=== PATIENT | male | born 1985 | race Caucasian/White ===

== ENCOUNTER 2017-03-17 17:51 | Inpatient (IN) | payer MEDICAID ==
[~2017-03-17] VITALS: Ht 182.9 cm; Wt 84.0 kg
[2017-03-17] MEDS ORDERED: SODIUM CHLORIDE FLUSH 10ML SYR IVF ONE ×2 (18:30→20:00)
[2017-03-17] MEDS ORDERED: ONDANSETRON 2MG/ML, 2ML IVPush ONE ×2 (18:30→20:00)
[2017-03-17] MEDS ORDERED: SODIUM CHLORIDE 0.9% 1,000ML IVBOLUS ONE (18:30)
[2017-03-17] MEDS ORDERED: ONDANSETRON 2MG/ML, 2ML ONE ×2 (18:48→20:20)
[2017-03-17 18:51] LABS: BASOPHILS # (AUTO) 0.06 x10^3/uL (0-0.1); BASOPHILS % (AUTO) 0 % (0-1); EOSINOPHILS # (AUTO) 0.14 x10^3/uL (0-0.4); EOSINOPHILS % (AUTO) 1 % (1-7); LYMPHOCYTES # (AUTO) 1.72 x10^3/uL (1-3.4); LYMPHOCYTES % (AUTO) 13 % (22-44); MD NO; MEAN CORPUSCULAR HEMOGLOBIN 31.9 pg (27.5-34.5); MEAN CORPUSCULAR HGB CONC 34.5 g/dL (33.2-36.2); MEAN CORPUSCULAR VOLUME 92.6 fL (81-97); MEAN PLATELET VOLUME 8.6 fL (7.4-10.4); MONOCYTES # (AUTO) 0.46 x10^3/uL (0.2-0.8); MONOCYTES % (AUTO) 3 % (2-9); NEUTROPHILS # (AUTO) 11.44 x10^3/uL (1.8-6.8); NEUTROPHILS % (AUTO) 83 % (42-75); PLATELET COUNT 268 x10^3/uL (130-400); RED BLOOD COUNT 5.47 x10^6/uL (4.38-5.82); RED CELL DISTRIBUTION WIDTH 13.1 % (9.4-14.8)
[2017-03-17 19:04] LABS: ALBUMIN 4.2 g/dL (3.4-5.0); ANION GAP 8 mmol/L (5-15); CALCIUM 8.9 mg/dL (8.5-10.1); CHLORIDE 108 mmol/L (98-107)
[2017-03-17] MEDS ORDERED: FAMOTIDINE 20 MG/2 ML IVP ONE (20:00)
[2017-03-17] MEDS ORDERED: SODIUM CHLORIDE 0.9% 1,000 ML IV ONE (20:00)
[2017-03-17] MEDS ORDERED: HYDROmorphone 2 MG/ML, 1ML ONE ×2 (20:20→22:25)
[2017-03-17] MEDS: HYDROmorphone 1 MG/ML, 1ML IVPush PRN ×2 (20:25→22:26)
[2017-03-17 20:52] LABS: ALBUMIN 3.8 g/dL (3.4-5.0); BILIRUBIN, DIRECT 0.2 mg/dL (0.1-0.2)
[2017-03-17 20:54] LABS: MICROSCOPIC INDICATED
[2017-03-17 20:55] LABS: BILIRUBIN,INDIRECT 0.6 mg/dL (0.0-2.0); BILIRUBIN,TOTAL 0.8 mg/dL (0.2-1.0); TOTAL PROTEIN 7.3 g/dL (6.4-8.2)
[2017-03-17 20:59] LABS: CULTURE INDICATED? YES
[2017-03-17] MEDS ORDERED: OMNIPAQUE 350 MG/ML, 100ML BOTTLE ONE (21:21)
[2017-03-17 21:24] LABS: CLOSTRIDIUM DIFFICILE ANTIGEN NEGATIVE; CLOSTRIDIUM DIFFICILE TOXIN NEGATIVE (Negative)
[2017-03-17] MEDS ORDERED: METRONIDAZOLE PMX 500MG/100ML 100 ML IV ONE (22:00)
[2017-03-17] MEDS ORDERED: CIPROFLOXACIN/PMX 400MG/200ML 200 ML IV ONE (22:00)
[2017-03-17] MEDS ORDERED: CIPROFLOXACIN/PMX 400MG/200ML 200 ML ONE (22:15)
[2017-03-17] MEDS ORDERED: FAMOTIDINE 20 MG/2 ML ONE (22:15)
[2017-03-17] MEDS: SODIUM CHLORIDE 0.9% 1,000 ML IV SCH (22:44)
[2017-03-17 22:54] VITALS: BP 123/73
[2017-03-17] MEDS ORDERED: POTASSIUM CHLORIDE 40 MEQ in SODIUM CHLORIDE 0.9% 500 ML IV ONE (23:00)
[2017-03-17] MEDS: morphine SULFATE 10 MG/ML, 1ML IVPush PRN (23:11)
[2017-03-17 23:29] LABS: HCT (SEDRATE) 50.6 % (39.2-51.8)
[2017-03-18] MEDS: METRONIDAZOLE PMX 500MG/100ML 100 ML IV SCH ×3 (00:06→18:08)
[2017-03-18 01:06] LABS: OCCULT BLOOD POSITIVE (NEGATIVE)
[2017-03-18 02:04] VITALS: BP 123/72
[2017-03-18] MEDS: ONDANSETRON 2MG/ML, 2ML IVPush PRN ×4 (02:13→21:20)
[2017-03-18] MEDS: morphine SULFATE 10 MG/ML, 1ML IVPush PRN ×7 (02:14→21:20)
[2017-03-18 05:26] LABS: BASOPHILS # (AUTO) 0.05 x10^3/uL (0-0.1); BASOPHILS % (AUTO) 0 % (0-1); EOSINOPHILS # (AUTO) 0.08 x10^3/uL (0-0.4); EOSINOPHILS % (AUTO) 1 % (1-7); LYMPHOCYTES # (AUTO) 2.05 x10^3/uL (1-3.4); LYMPHOCYTES % (AUTO) 14 % (22-44); MD NO; MEAN CORPUSCULAR HEMOGLOBIN 31.5 pg (27.5-34.5); MEAN CORPUSCULAR VOLUME 92.7 fL (81-97); MEAN PLATELET VOLUME 8.6 fL (7.4-10.4); MONOCYTES # (AUTO) 0.62 x10^3/uL (0.2-0.8); MONOCYTES % (AUTO) 4 % (2-9); NEUTROPHILS # (AUTO) 11.87 x10^3/uL (1.8-6.8); NEUTROPHILS % (AUTO) 81 % (42-75); PLATELET COUNT 231 x10^3/uL (130-400); RED BLOOD COUNT 5.12 x10^6/uL (4.38-5.82); RED CELL DISTRIBUTION WIDTH 12.9 % (9.4-14.8)
[2017-03-18 05:39] LABS: ALBUMIN 3.2 g/dL (3.4-5.0); ANION GAP 5 mmol/L (5-15); CALCIUM 7.3 mg/dL (8.5-10.1); CHLORIDE 111 mmol/L (98-107)
[2017-03-18 05:49] LABS: ALANINE AMINOTRANSFERASE 23 U/L (12-78); ALKALINE PHOSPHATASE 45 U/L (45-117); BILIRUBIN,TOTAL 0.6 mg/dL (0.2-1.0); CHOL/HDL RATIO 3.2; CHOLESTEROL, TOTAL 125 mg/dL (140-239); CREATININE 0.92 mg/dL (0.7-1.3); HDL CHOL % 31 % (26-37); HDL CHOLESTEROL (DIRECT) 39 mg/dL (40-60); LDL CHOLESTEROL,CALCULATED 77 mg/dL (54-169); TOTAL PROTEIN 6.4 g/dL (6.4-8.2); TRIGLYCERIDES 47 mg/dL (50-200); VLDL CHOLESTEROL 9 mg/dL (0-25)
[2017-03-18 06:26] LABS: HEMOGLOBIN A1C 4.9 % (4.2-6.3)
[2017-03-18] MEDS ORDERED: PANTOPRAZOLE 40 MG IV IVPush SCH (07:30)
[2017-03-18 07:55] VITALS: BP 123/75
[2017-03-18] MEDS ORDERED: LEVOFLOXACIN/PMX 750MG/150ML 150 ML IV SCH (10:00)
[2017-03-18] MEDS: SODIUM CHLORIDE 0.9% 1,000 ML IV SCH (10:08)
[2017-03-18] MEDS ORDERED: SODIUM PHOSPHATE 20 MMOL in SODIUM CHLORIDE 0.9% 500 ML IV ONE (11:00)
[2017-03-18] MEDS ORDERED: MAGNESIUM SULFATE PMX 2GM/50ML 50 ML IV ONE (11:00)
[2017-03-18 13:51] VITALS: BP 129/77
[2017-03-18] MEDS: CIPROFLOXACIN/PMX 400MG/200ML 200 ML IV SCH (14:09)
[2017-03-18 18:24] VITALS: BP 115/67
[2017-03-18] MEDS: D5%-0.9% NACL+KCL 20MEQ 1,000 ML IV SCH (19:48)
[2017-03-19] MEDS: morphine SULFATE 10 MG/ML, 1ML IVPush PRN ×7 (00:33→21:20)
[2017-03-19 00:53] VITALS: BP 111/64
[2017-03-19] MEDS: CIPROFLOXACIN/PMX 400MG/200ML 200 ML IV SCH ×2 (01:49→14:44)
[2017-03-19] MEDS: METRONIDAZOLE PMX 500MG/100ML 100 ML IV SCH ×3 (03:12→18:17)
[2017-03-19] MEDS: D5%-0.9% NACL+KCL 20MEQ 1,000 ML IV SCH ×2 (05:04→14:47)
[2017-03-19] MEDS: ONDANSETRON 2MG/ML, 2ML IVPush PRN ×3 (05:04→18:17)
[2017-03-19 05:35] LABS: BASOPHILS # (AUTO) 0.05 x10^3/uL (0-0.1); BASOPHILS % (AUTO) 0 % (0-1); EOSINOPHILS # (AUTO) 0.13 x10^3/uL (0-0.4); EOSINOPHILS % (AUTO) 1 % (1-7); LYMPHOCYTES # (AUTO) 1.93 x10^3/uL (1-3.4); LYMPHOCYTES % (AUTO) 16 % (22-44); MD NO; MEAN CORPUSCULAR HEMOGLOBIN 31.6 pg (27.5-34.5); MEAN CORPUSCULAR HGB CONC 34.3 g/dL (33.2-36.2); MEAN CORPUSCULAR VOLUME 92.1 fL (81-97); MEAN PLATELET VOLUME 8.4 fL (7.4-10.4); MONOCYTES # (AUTO) 0.62 x10^3/uL (0.2-0.8); MONOCYTES % (AUTO) 5 % (2-9); NEUTROPHILS # (AUTO) 9.46 x10^3/uL (1.8-6.8); NEUTROPHILS % (AUTO) 78 % (42-75); PLATELET COUNT 232 x10^3/uL (130-400); RED BLOOD COUNT 5.06 x10^6/uL (4.38-5.82); RED CELL DISTRIBUTION WIDTH 13.4 % (9.4-14.8)
[2017-03-19 05:48] LABS: ANION GAP 6 mmol/L (5-15); CALCIUM 7.3 mg/dL (8.5-10.1); CHLORIDE 108 mmol/L (98-107)
[2017-03-19 05:49] LABS: CREATININE 0.78 mg/dL (0.7-1.3)
[2017-03-19 07:10] VITALS: BP 109/65
[2017-03-19] MEDS ORDERED: POTASSIUM PHOSPHATE 44 MEQ in SODIUM CHLORIDE 0.9% 500 ML IV ONE (11:00)
[2017-03-19 12:41] VITALS: BP 100/63
[2017-03-19 20:00] VITALS: BP 96/52
[2017-03-20] MEDS: morphine SULFATE 10 MG/ML, 1ML IVPush PRN ×3 (00:38→14:02)
[2017-03-20 01:37] VITALS: BP 94/57
[2017-03-20] MEDS: CIPROFLOXACIN/PMX 400MG/200ML 200 ML IV SCH ×2 (01:40→14:03)
[2017-03-20] MEDS: METRONIDAZOLE PMX 500MG/100ML 100 ML IV SCH ×2 (03:16→10:27)
[2017-03-20 06:08] LABS: BASOPHILS # (AUTO) 0.07 x10^3/uL (0-0.1); BASOPHILS % (AUTO) 1 % (0-1); CHLORIDE 108 mmol/L (98-107); EOSINOPHILS % (AUTO) 4 % (1-7); LYMPHOCYTES # (AUTO) 2.68 x10^3/uL (1-3.4); LYMPHOCYTES % (AUTO) 35 % (22-44); MD NO; MEAN CORPUSCULAR HEMOGLOBIN 31.8 pg (27.5-34.5); MEAN CORPUSCULAR HGB CONC 34.3 g/dL (33.2-36.2); MEAN CORPUSCULAR VOLUME 92.8 fL (81-97); MEAN PLATELET VOLUME 8.2 fL (7.4-10.4); MONOCYTES # (AUTO) 0.47 x10^3/uL (0.2-0.8); MONOCYTES % (AUTO) 6 % (2-9); NEUTROPHILS # (AUTO) 4.08 x10^3/uL (1.8-6.8); NEUTROPHILS % (AUTO) 54 % (42-75); PLATELET COUNT 228 x10^3/uL (130-400); RED BLOOD COUNT 4.92 x10^6/uL (4.38-5.82); RED CELL DISTRIBUTION WIDTH 13.2 % (9.4-14.8)
[2017-03-20 06:12] LABS: ANION GAP 5 mmol/L (5-15); CREATININE 0.96 mg/dL (0.7-1.3)
[2017-03-20] MEDS: ONDANSETRON 2MG/ML, 2ML IVPush PRN (09:49)
[2017-03-20 10:26] VITALS: BP 109/66
[2017-03-20 13:30] VITALS: BP 99/58
[2017-03-20] MEDS ORDERED: OXYcodone/APAP 5/325MG TABLET PO PRN (14:30)
[2017-03-20] MEDS: metroNIDAZOLE 500 MG TABLET PO SCH ×2 (18:21→21:18)
[2017-03-20 20:27] VITALS: BP 111/75
[2017-03-20] MEDS: CIPROFLOXACIN 500 MG TABLET PO SCH (21:18)
[2017-03-21 01:37] VITALS: BP 101/68
[2017-03-21 06:45] VITALS: BP 107/69
[2017-03-21] MEDS: metroNIDAZOLE 500 MG TABLET PO SCH (09:02)
[2017-03-21] MEDS: CIPROFLOXACIN 500 MG TABLET PO SCH (09:02)
[2017-03-21] MEDS ORDERED: METR500T PO (11:37)
[2017-03-21] MEDS ORDERED: CIPR500T87 PO (11:37)
[2017-03-21] MEDS ORDERED: OXYC1TAB7 PO (11:37)
[2017-03-21 11:51] VITALS: BP 126/85
== END 2017-03-21 12:18 | disposition home or self-care (01) | DRG 392 ==
LOC: ED 19:37 → 4NOR 21:49 → DCLOUNGE 03-21 12:00
PROVIDERS: ADMIT Surgery; ATTEND Surgery
DX: A09 Infectious gastroenteritis and colitis, unspecified (principal); N28.1 Cyst of kidney, acquired; N39.0 Urinary tract infection, site not specified; M51.37 Other intervertebral disc degeneration, lumbosacral region
CPT/HCPCS: 36415; 74177; 80048; 80053; 80061; 80076; 81001; 82040; 82272; 83036; 83605; 83690; 83735; 84100; 84443; 85025; 85651; 86141; 87046; 87086; 87324; 87338; 87899; 89055; 93005; J0744; J1170; J1956; J2405; J3480; Q9967; C9113; J2270; J3475; J7030; J7040; S0028

== ENCOUNTER 2017-06-02 10:06 | Emergency (ER) | payer MEDICAID ==
[~2017-06-02] VITALS: Ht 182.9 cm; Wt 65.1 kg
[~2017-06-02 10:06] MED LIST: CIPR500T87 PO; METR500T PO; OXYC1TAB7 PO
[2017-06-02 11:02] LABS: BASOPHILS # (AUTO) 0.04 x10^3/uL (0-0.1); BASOPHILS % (AUTO) 1 % (0-1); EOSINOPHILS # (AUTO) 0.14 x10^3/uL (0-0.4); EOSINOPHILS % (AUTO) 2 % (1-7); LYMPHOCYTES # (AUTO) 2.26 x10^3/uL (1-3.4); LYMPHOCYTES % (AUTO) 29 % (22-44); MD NO; MEAN CORPUSCULAR HEMOGLOBIN 31.7 pg (27.5-34.5); MEAN CORPUSCULAR HGB CONC 34.2 g/dL (33.2-36.2); MEAN CORPUSCULAR VOLUME 92.6 fL (81-97); MEAN PLATELET VOLUME 8.9 fL (7.4-10.4); MONOCYTES % (AUTO) 4 % (2-9); NEUTROPHILS # (AUTO) 5.14 x10^3/uL (1.8-6.8); NEUTROPHILS % (AUTO) 65 % (42-75); PLATELET COUNT 240 x10^3/uL (130-400); RED BLOOD COUNT 5.77 x10^6/uL (4.38-5.82); RED CELL DISTRIBUTION WIDTH 12.3 % (9.4-14.8)
[2017-06-02 11:13] LABS: ALANINE AMINOTRANSFERASE 19 U/L (12-78); ANION GAP 5 mmol/L (5-15); CALCIUM 8.6 mg/dL (8.5-10.1); CHLORIDE 109 mmol/L (98-107); CREATININE 1.11 mg/dL (0.7-1.3)
[2017-06-02 11:15] LABS: ALKALINE PHOSPHATASE 60 U/L (45-117); BILIRUBIN,TOTAL 0.3 mg/dL (0.2-1.0); TOTAL PROTEIN 7.5 g/dL (6.4-8.2)
[2017-06-02] MEDS ORDERED: SODIUM CHLORIDE 0.9% 1,000ML IVBOLUS ONE (11:30)
[2017-06-02] MEDS ORDERED: DIPHENHYDRAMINE 50 MG/ML, 1ML IVPush ONE (11:30)
[2017-06-02] MEDS ORDERED: SODIUM CHLORIDE FLUSH 10ML SYR IVF ONE (11:30)
[2017-06-02] MEDS ORDERED: DIPHENHYDRAMINE 50 MG/ML, 1ML ONE (11:42)
[2017-06-02] MEDS ORDERED: MORPHINE SULFATE 4 MG/ML, 1ML ONE ×2 (11:42→12:21)
[2017-06-02] MEDS: MORPHINE SULFATE 4 MG/ML, 1ML IVPush PRN ×2 (11:44→12:23)
[2017-06-02] MEDS ORDERED: OMNIPAQUE 350 MG/ML, 100ML BOTTLE ONE (12:01)
[2017-06-02 12:02] LABS: MICROSCOPIC AUTO
[2017-06-02 12:07] LABS: CULTURE INDICATED? YES
[2017-06-02 13:16] VITALS: BP 110/73
== END 2017-06-02 13:19 | disposition home or self-care (01) ==
LOC: ED 13:13
DX: R10.84 Generalized abdominal pain (principal)
CPT/HCPCS: 36415; 74021; 74177; 80053; 81001; 83690; 85025; 87086; 96361; 96374; 96375; 96376; 99285; J1200; J7030; Q9967

== ENCOUNTER 2017-07-14 09:51 | Emergency (ER) | payer MEDICAID ==
[~2017-07-14] VITALS: Ht 182.9 cm; Wt 83.9 kg
[2017-07-14 10:32] LABS: MICROSCOPIC NOT IND
[2017-07-14 10:34] LABS: CULTURE INDICATED? NO
[2017-07-14] MEDS ORDERED: MORPHINE SULFATE 4 MG/ML, 1ML ONE (10:58)
[2017-07-14] MEDS ORDERED: ONDANSETRON ODT 4 MG ONE (10:58)
[2017-07-14] MEDS ORDERED: HYDROmorphone 2 MG/ML, 1ML ONE (11:00)
[2017-07-14 11:55] VITALS: BP 118/67
[2017-07-14] MEDS ORDERED: ONDANSETRON ODT 4 MG PO ONE (12:00)
[2017-07-14] MEDS ORDERED: HYDROmorphone 2 MG/ML, 1ML IM ONE (12:00)
== END 2017-07-14 12:04 | disposition home or self-care (01) ==
LOC: ED 11:55
DX: N50.811 Right testicular pain (principal)
CPT/HCPCS: 76870; 81003; 93975; 96372; 99285; J1170; Q0162